=== PATIENT | female | born 1980 | race Caucasian/White ===

== ENCOUNTER 2025-03-20 20:07 | Emergency (ER) | payer OTHER ==
[~2025-03-20] VITALS: Ht 175.3 cm; Wt 74.8 kg
[2025-03-20] MEDS ORDERED: KETOROLAC TROMETHAMINE INJ 30 MG/ML VIAL ONE (21:06)
[2025-03-20] MEDS: KETOROLAC TROMETHAMINE 15 MG/ML VIAL IM ONE (21:37)
[2025-03-20] MEDS ORDERED: IBUP-1490 PO (21:48)
[2025-03-20] MEDS ORDERED: DICL1KIT14 TP (21:48)
[2025-03-20] MEDS ORDERED: CYCL5TAB PO (21:48)
[2025-03-20] MEDS ORDERED: POLY17PO4 PO (21:54)
[2025-03-20 22:04] VITALS: BP 122/65; TEMP 98.9; O2SAT 98
== END 2025-03-20 22:04 | disposition home or self-care (01) ==
LOC: ER 20:20
DX: M54.50 Low back pain, unspecified (principal)
CPT/HCPCS: 81025; 84703; 96372; 99283; J1885